=== PATIENT | male | born 2000 | race Caucasian/White ===

== ENCOUNTER 2021-01-23 21:12 | Emergency (ER) | payer BC, OTHER ==
[~2021-01-23 21:12] MED LIST: IBUPROFEN600 MG PO; IMITREX25 MG PO; ZOFRAN ODT 4 MG4 MG PO
== END 2021-01-23 22:35 | disposition left against medical advice (07) ==
LOC: ER1 21:12
DX: R25.2 Cramp and spasm (principal); Z88.0 Allergy status to penicillin
CPT/HCPCS: 99283

== ENCOUNTER 2021-08-28 02:16 | Emergency (ER) | payer BC, OTHER | END 2021-08-28 04:30 | disposition left against medical advice (07) | LOC: ER1 02:16 | DX: Z53.21 Procedure and treatment not carried out due to patient leaving prior to being seen by health care provider (principal) ==